=== PATIENT | male | born 1985 | race African-American/Black ===

== ENCOUNTER 2022-04-23 14:47 | Emergency (ER) | payer OTHER, SELFPAY ==
[2022-04-23] MEDS ORDERED: Ketorolac Tromethamine 30 MG/ML VIAL ONE (15:33)
== END 2022-04-23 15:38 | disposition home or self-care (01) ==
LOC: CSHERS 14:47
DX: K11.20 Sialoadenitis, unspecified (principal); F17.210 Nicotine dependence, cigarettes, uncomplicated
CPT/HCPCS: 96372; 99283; J1885